=== PATIENT | male | born 1955 | race Hispanic/Latino ===

== ENCOUNTER 2017-09-28 14:15 | Outpatient (CLI) | payer OTHER ==
--- NOTE | 2017-09-28 16:03 | XRay Report ---
XRAY LEFT KNEE 4 THREE VIEWS: 09/28/17 CLINICAL: Left knee pain. FINDINGS: Medial joint space narrowing with near-complete loss of joint space and large medial osteophytes. Slight widening of the lateral joint space. Small patellofemoral joint osteophytes. No joint effusion.Normal soft tissues. IMPRESSION: Osteoarthritis with greater involvement of the medial joint.
== END 2017-09-28 14:16 | disposition home or self-care (01) ==
LOC: SPVIMAG 14:15
PROVIDERS: ATTEND Orthopaedic Surgery
DX: M17.12 Unilateral primary osteoarthritis, left knee (principal)